=== PATIENT | male | born 1975 | race Caucasian/White ===

== ENCOUNTER 2025-01-25 08:38 | Outpatient (OUT) | payer OTHER, SELFPAY ==
[2025-01-25 09:02] LABS: Basophils Percent Auto 0.5 % (0.2-2.0); Eosinophils Absolute Auto 0.2 10^3/uL (0.0-0.7); Eosinophils Percent Auto 2.3 % (0.9-7.0); Hematocrit 43.5 % (42.0-54.0); Hemoglobin 15.8 g/dL (14.0-18.0); Immature Granulocytes Abs Auto 0.02 10^3/uL (0.00-0.03); Immature Granulocytes Pct Auto 0.2 % (0.0-0.5); Lymphocytes Absolute Auto 2.3 10^3/uL (1.2-3.8); Lymphocytes Percent Auto 27.6 % (20.5-60.0); Mean Corpuscular HGB Conc 36.3 g/dL (29.9-35.2); Mean Corpuscular Hemoglobin 33.7 pg (25.9-34.0); Mean Corpuscular Volume 92.8 fL (80.0-94.0); Mean Platelet Volume 9.1 fL (9.5-13.5); Monocytes Absolute Auto 0.7 10^3/uL (0.3-0.8); Monocytes Percent Auto 7.9 % (1.7-12.0); Neutrophils Absolute Auto 5.2 10^3/uL (1.4-6.5); Neutrophils Percent Auto 61.5 % (43.0-75.0); Platelet Count 272 10^3/uL (150-450); Red Blood Count 4.69 10^6/uL (4.70-6.10); Red Cell Distribution Width 11.8 % (11.0-15.0); White Blood Count 8.4 10^3/uL (4.0-11.0)
[2025-01-25 09:48] LABS: Alanine Aminotransferase 41 U/L (16-63); Albumin Globulin Ratio 1.1; Albumin Level 3.6 g/dL (3.4-5.0); Alkaline Phosphatase 77 U/L (46-116); Anion Gap 12.8; Aspartate Amino Transferase 22 U/L (15-37); BUN Creatinine Ratio 10.5; Bilirubin Total 1.1 mg/dL (0.2-1.0); Calcium 8.9 mg/dL (8.5-10.1); Carbon Dioxide 24.6 mmol/L (21.0-32.0); Chloride 105 mmol/L (98-107); Chol HDL Ratio 3.5; Cholesterol 120 mg/dL (<=200); Estimated GFR (African America >60 (>=60 mL/min/1.73m^2); Estimated GFR (Non-African Ame >60 (>=60 mL/min/1.73m^2); Globulin 3.2 g/dL; Glucose 165 mg/dL (74-106); HDL Cholesterol 34 mg/dL (40-60); Potassium 4.4 mmol/L (3.5-5.1); Sodium 138 mmol/L (136-145); Thyroid Stimulating Hormone 1.187 uIU/mL (0.358-3.740); Total Protein 6.8 g/dL (6.4-8.2); Triglycerides 100 mg/dL (<=150)
== END 2025-01-25 08:39 | disposition home or self-care (01) ==
PROVIDERS: Family Provider Family Medicine; PCP Nurse Practitioner Family; Visit Provider Nurse Practitioner Family
DX: Z00.00 Encounter for general adult medical examination without abnormal findings (principal)
CPT/HCPCS: 36415; 80053; 80061; 84443; 85025

== ENCOUNTER 2025-02-01 09:48 | Outpatient (OUT) | payer OTHER, SELFPAY ==
[2025-02-01 10:31] LABS: Estimated Average Glucose 169 mg/dL; Glycohemoglobin A1C 7.5 % (4.5-6.2)
== END 2025-02-01 09:49 | disposition home or self-care (01) ==
LOC: LAB 09:51
PROVIDERS: Family Provider Family Medicine; PCP Nurse Practitioner Family; Visit Provider Nurse Practitioner Family
DX: R73.03 Prediabetes (principal)
CPT/HCPCS: 36415; 83036

== ENCOUNTER 2025-05-21 08:42 | Outpatient (OUT) | payer OTHER, SELFPAY ==
--- OUTSIDE RECORDS SUMMARY | 2025-05-21 08:49 | XMS_ITS | CCD ---
Author Organization [facility] Care Team Providers Care Parts Sales Advisor Name Role Phone GABRIEL OSUNA Unavailable Unavailable GABRIEL OSUNA Unavailable Unavailable GABRIEL OSUNA Unavailable Unavailable Problems Problem Classification Problem Date Documented Da te Episodic/Chronic Asthma (4 sources) Unspecified asthma, uncomplicated; Translations: [UNSPECIFIED ASTHMA UNCOMPLICATED] Onset: 04-14-2018 Chronic Disorders of lipid metabolism (1 source) Hyperlipidemia, unspecified; Translations: [HYPERLIPIDEMIA UNSPECIFIED] Onset: 04-20-2018 Chronic Unclassified (1 source) Tobacco use; Translations: [TOBACCO USE] Onset: 04-20-2018 Episodic Results Test Name Value Interpretation Reference Range Facility CBC AUTO DIFFon 04-14-2018 Basophils Auto #/vol (Bld) 0.1 103/ul Normal 0.0-0.1 [facility] Comment on above: Performed By: #### C BC ####[facility] [address] [place], [place] [address]Ckguza Omayra Basophils/100 WBC Auto (Bld) 0.5 % Normal 0.2-2.0 [facility] Comment on above: Performed By: #### C BC ####[facility] [address] [place], [place] [address]Jykxxh Omayra Eosinophils 0.6 103/ul Normal 0.0-0.7 [facility] Comment on above: Performed By: #### C BC ####[facility] [address] [place], [place] [address]Donpit Omayra Eosinophils/100 leukocytes 6.4 % Normal 0.9-7.0 [facility] Comment on above: Performed By: #### C BC ####[facility] [address] [place], [place] [address]Ncqkxj Omayra Erythrocyte distribution width Auto Ratio (RBC) 12.2 % Normal 11.0-15.0 [facility] Comment on above: Performed By: #### C BC ####[facility] [address] [place] [id number] Omayra Erythrocytes (RBC) 4.61 106/ul Critically low 4.70-6.10 T [facility] Comment on above: Performed By: #### C BC ####[facility] [address] [place] [phone] Omayra Hematocrit (HCT) 44.0 % Normal 42.0-54.0 [facility] [place] Comment on above: Performed By: #### C BC ####[facility] [address] [place] [phone] Omayra Hemoglobin mass conc (Bld) 15.7 g/dL Normal 14.0-18.0 [facility] Comment on above: Performed By: #### C BC ####[facility] [address] [place], [place] [id number] Omayra IG # 0.02 10e3/ul Normal 0.00-0.03 [facility] Comment on above: Performed By: #### C BC ####[facility] [address] [place] [phone] Omayra IG % 0.2 % Normal 0.0-0.5 [facility] Comment on above: Performed By: #### C BC ####[facility] [address] [place] [phone] Omayra Lymphocytes 2.9 103/ul Normal 1.2-3.8 [facility] Comment on above: Performed By: #### C BC ####[facility] [address] [place] [phone] Omayra Lymphocytes/100 leukocytes 31.1 % Normal 20.5-60.0 [facility] Comment on above: Performed By: #### C BC ####[facility] Ckw[address] Omayra MANUAL DIFF REQ NO Normal [facility] Comment on above: Performed By: #### C BC ####[facility] [address] [place] [id number] Cutler MCH 34.1 pg Critically high 25.9-34.0 [facility] Comment on above: Performed By: #### C BC ####[facility] [address] [place] [phone] Cutler MCHC mass conc (RBC) 35.7 g/dL Critically high 29.9-35.2 [facility] Comment on above: Performed By: #### C BC ####[facility] [address] [place] [phone] Levien MCV 95.4 fL Critically high 80.0-94.0 [facility] Comment on above: Performed By: #### C BC ####[facility] [address] [place], [place] [phone] Omayra Monocytes 0.9 103/ul Critically high 0.3-0.8 [facility] Comment on above: Performed By: #### C BC ####[facility] [address] [place], [place] [phone] Cutler Monocytes/100 leukocytes 9.4 % Normal 1.7-12.0 [facility] Comment on above: Performed By: #### C BC ####[facility] [address] [place], [place] [phone] Omayra Neutrophils 4.9 103/ul Normal 1.4-6.5 [facility] Comment on above: Performed By: #### C BC ####[facility] [address] [place], [place] [phone] Cutler Neutrophils/100 WBC Auto (Bld) 52.4 % Normal 43.0-75.0 [facility] Comment on above: Performed By: #### C BC ####[facility] [address] [place], [place] [phone] Cutler Platelet mean volume (PMV) 9.4 fL Critically low 9.5-13.5 [facility] Comment on above: Performed By: #### C BC ####[facility] [address] [place], [place] [phone] Omayra Platelets 268 103/ul Normal 150-450 [facility] Comment on above: Performed By: #### C BC ####[facility] Qq[address] Omayra WBC (Leukocytes) 9.4 103/ul Normal 4.0-11.0 [facility] [place] Comment on above: Performed By: #### C BC ####[facility] L[address] Omayra LIPID PROFILEon 04-14-2018 CHOL-HDL RATIO NORM SEE BELOW Normal [facility] Comment on above: Result Comment: 3.3 - 4.4 LOW RISK 4.4 - 7.1 AVERAGE RISK 7.1 - 11.0 MODERATE RISK >11.0 HIGH RISK Performed By: #### C MP, LIPID, TSH ####[facility] Zim[address]rxfr[address]40 [address] Omayra Cholesterol 127 mg/dL Normal <=200 [facility] Comment on above: Performed By: #### C MP, LIPID, TSH ####[facility] Ugfljsrsco2926 [address] Omayra Cholesterol to HDL Ratio 5.0 {ratio} Normal [facility] Comment on above: Performed By: #### C MP, LIPID, TSH ####[facility] Qistibrvxl2928 [address] Omayra HDL Cholesterol 27 mg/dL Normal [facility] Comment on above: Performed By: #### C MP, LIPID, TSH ####[facility] Af[address] Omayra HDL Cholesterol > or = 60 mg/dl - LOW CARDIOVASCULAR RISK <40 mg/dl - HIGH CARDIOVASCULAR RISK Normal [facility] Comment on above: Performed By: #### C MP, LIPID, TSH ####[facility] Oihnbciayb3472 [address] Omayra LDL Cholesterol 74.0 mg/dL Normal [facility] Comment on above: Performed By: #### C MP, LIPID, TSH ####[facility] Klxaoijhmy[address] Omayra LDL Cholesterol SEE BELOW Normal [facility] Comment on above: Result Comment: <100 mg/dl OPTIMAL 100 - 129 mg/dl NEAR OR ABOVE OPTIMAL 130 - 159 mg/dl BORDERLINE HIGH 160 - 189 mg/dl HIGH >190 mg/dl VERY HIGH Performed By: #### C MP, LIPID, TSH ####[facility] Yoic[address]unwh[address] Omayra Triglyceride 132 mg/dL Normal <=150 [facility] Comment on above: Performed By: #### C MP, LIPID, TSH ####[facility] Vj[address] Omayra VLDL CALC 26.0 mg/dL Normal [facility] Comment on above: Performed By: #### C MP, LIPID, TSH ####[facility] Qyt[address]kov[address]99 [address] O[place] PROF 14(COMP METB)on 018 Alanine aminotransferase (ALT) 30 U/L Normal 21-72 [facility] Comment on above: Performed By: #### C MP, LIPID, TSH ####[facility] Utjgexclqt[address]62 [address] O[place] Albumin 4.2 g/dL Normal 3.5-5.0 [facility] Comment on above: Performed By: #### C MP, LIPID, TSH ####[facility] Msl[address]efxkwl[address] O[place]ra Albumin/Globulin Ratio 1.5 {ratio} Normal T [facility] Comment on above: Performed By: #### C MP, LIPID, TSH ####[facility] Fod[address]atehuz[address] O[place] Alkaline phosphatase (ALP) 65 U/L Normal 38-126 [facility] Comment on above: Performed By: #### C MP, LIPID, TSH ####[facility] Ivhxeulzyg[address] Omay[place] Anion gap 9.6 mmol/L Normal [facility] Comment on above: Performed By: #### C MP, LIPID, TSH ####[facility] [address] [place] [id number] Omayra Aspartate aminotransferase (AST) 22 U/L Normal 17-59 [facility] Comment on above: Performed By: #### C MP, LIPID, TSH ####[facility] [address] [place] [phone] Omayra Bilirubin Ql (U) 1.3 mg/dL Normal 0.2-1.3 The [facility] Comment on above: Performed By: #### C MP, LIPID, TSH ####[facility] Kapl[address]wre[address] Omayra BUN/Creatinine Ratio 11.6 mg/mg Normal [facility] Comment on above: Performed By: #### C MP, LIPID, TSH ####[facility] Uegxv[address]nry[address] Omayra Calcium 9.3 mg/dL Normal 8.4-10.2 [facility] Comment on above: Performed By: #### C MP, LIPID, TSH ####[facility] Btueujdw[address] Omayra Chloride 106 mmol/L Normal 98-107 [facility] Comment on above: Performed By: #### C MP, LIPID, TSH ####[facility] Ubn[address]ajdvq[address] Omay[place] CO2 28.0 mmol/L Normal 22.0-30.0 [facility] Comment on above: Performed By: #### C MP, LIPID, TSH ####[facility] [address]fl[address] [place] [id number] Omayra Creatinine 0.87 mg/dL Normal 0.66-1.25 [facility] Comment on above: Performed By: #### C MP, LIPID, TSH ####[facility] Qnloxkgsph[address] [place] EGFR-AF FAROESE >60 Normal >=60 The [facility] Comment on above: Performed By: #### C MP, LIPID, TSH ####[facility] P[address]xtk[address] [place] EGFR-NON AF FAROESE >60 Normal >=60 [facility] Comment on above: Performed By: #### C MP, LIPID, TSH ####[facility] Extwjjbztj[address]32 [address] [place] Globulin 2.8 g/dL Normal [facility] Comment on above: Performed By: #### C MP, LIPID, TSH ####[facility] Wnxlzpwpyq1048 [address] Omayra Glucose mass conc 104 mg/dL Normal 74-106 [facility] Comment on above: Performed By: #### C MP, LIPID, TSH ####[facility] Uawnlhviht[address] Omay[place] Potassium molar conc 4.4 mmol/L Normal 3.4-5.0 [facility] Comment on above: Performed By: #### C MP, LIPID, TSH ####[facility] Edfjhoksju[address]70 [address] [place] Protein 7.1 g/dL Normal 6.1-8.2 [facility] Comment on above: Performed By: #### C MP, LIPID, TSH ####[facility] Ztofktwkfn[address] [place] Sodium 139 mmol/L Normal 137-145 [facility] Comment on above: Performed By: #### C MP, LIPID, TSH ####[facility] Tbkxl[address]mf[address] [place] Urea nitrogen 10.0 mg/dL Normal 9.0-20.0 [facility] Comment on above: Performed By: #### C MP, LIPID, TSH ####[facility] Cmsdperjms[address] O[place]ra TSHon 04-14-2018 Thyroid stimulating hormone (TSH) SEE BELOW Normal [facility] Comment on above: Result Comment: <0.3 4 UIU/ml HYPERTHYROID 0.34-5.60 UIU/ml EUTHYROID >5.60 UIU/ml HYPOTHYROID Performed By: #### C MP, LIPID, TSH ####[facility] [address] [place], [place] [address]WlncjbChika Cutler Thyroid stimulating hormone (TSH) 1.200 uIU/mL Normal 0.470-4.680 [facility] Comment on above: Performed By: #### C MP, LIPID, TSH ####[facility] [address] [place], [place] [address]XplwdbChika Cutler Encounters Encounter Date Encounter Type Care Provider Facility Start: 04-14-2018 End: 04-15-2018 Patient encounter GABRIEL OSUNA Facility:H1 Payers Date Payer Category Payer Private Health Insurance [id number] Summary Purpose Family History No Family History Records Found Advance Directives No Advanced Directives Records Found Additional Source Comments (unrecognized sect ion and content) No Status Records Found INFORMATION SOURCE (unrecogn ized section and content) DATE CREATED AUTHOR 04/21/2018 [facility] FOR RECORDS PERTAINING TO PATIENTS WHO ARE OR HAVE BEEN ENROLLED IN A CHEMICAL DEPENDENCY/SUBSTANCEABUSE PROGRAM, SOME INFORMATION MAY BE OMITTED. This clinical summary was aggregated from multiple sources. Caution should be exercised in using it in the provision of clinical care. This summary normalizes information from multiple sources, and as a consequence, information in this document may materially change the coding, format and clinical context of patient data. In addition, data may be omitted in some cases. CLINICAL DECISIONS SHOULD BE BASED ON THE PRIMARY CLINICAL RECORDS. [facility]. provides no warranty or guarantee of the accuracy or completeness of information in this document.
== END 2025-05-21 08:43 | disposition home or self-care (01) ==
LOC: LAB 08:44
PROVIDERS: Family Provider Family Medicine; PCP Nurse Practitioner Family; Visit Provider Nurse Practitioner Family
DX: E11.9 Type 2 diabetes mellitus without complications (principal)
CPT/HCPCS: 36415; 83036